=== PATIENT | female | born 1985 | race Caucasian/White ===

== ENCOUNTER 2018-09-03 14:30 | Emergency (ER) | payer OTHER ==
[~2018-09-03] VITALS: Ht 165.1 cm; Wt 127.0 kg
[2018-09-03] MEDS ORDERED: ADIPEX-P37.5 M1 PO (14:46)
[2018-09-03] MEDS ORDERED: METFORMIN HCL500 M1 PO (14:47)
[2018-09-03] MEDS ORDERED: MUPIROCIN22 GM TOP (18:57)
[2018-09-03] MEDS ORDERED: FLUCONAZOLE150 MG PO (18:57)
[2018-09-03] MEDS ORDERED: INTESTINEX680 M1 PO (18:57)
[2018-09-03] MEDS ORDERED: CLEOCIN HCL150 MG PO (18:57)
== END 2018-09-03 19:23 | disposition home or self-care (01) ==
LOC: ER 14:30
DX: N61.0 Mastitis without abscess (principal)